=== PATIENT | female | born 1985 | race Caucasian/White ===

== ENCOUNTER 2018-04-19 19:52 | Emergency (ER) | payer OTHER ==
[2018-04-19 19:57] VITALS: BP 127/77
[2018-04-19] MEDS ORDERED: AMOXICILLIN/CLAVULANATE POT 875/125 MG TAB PO ONE (20:27)
--- NOTE | 2018-04-19 20:29 | EDPHY ---
H & P Stated Complaint: cat bite to left middle finger Time Seen by Provider: 04/19/18 20:19 HPI/ROS: Chief Complaint: Cat bite to her left middle finger HPI: The patient presents to the ED after she sustained a cat bite to the pad of her left middle finger at work today. She denies any acute numbness or weakness. Her tetanus shot is up-to-date. She has received the rabies vaccination. She has no additional acute complaints. REVIEW OF SYSTEMS: Neuro: no headache, numbness, weakness Musculoskeletal: as above Skin: As above Source: Patient Exam Limitations: No limitations - Personal History LMP (Females 10-55): 22-28 Days Ago Current Tetanus/Diphtheria Vaccine: Yes Current Tetanus Diphtheria and Acellular Pertussis (TDAP): Yes - Medical/Surgical History Hx Asthma: No Hx Chronic Respiratory Disease: No Hx Diabetes: No Hx Cardiac Disease: No Hx Renal Disease: No Hx Cirrhosis: No Hx Alcoholism: No Hx HIV/AIDS: No Hx Splenectomy or Spleen Trauma: No Other PMH: migraines - Social History Smoking Status: Never smoked Alcohol Use: None Drug Use: None - Physical Exam Exam: General: No acute distress Left hand: Small puncture wound noted to the dorsal aspect of the pad of the left 3rd finger Neuro: Sensation intact to light touch Vascular: Normal capillary refill Constitutional: Initial Vital Signs Temperature (C) 37.1 C 04/19/18 19:54 Heart Rate 75 04/19/18 19:54 Respiratory Rate 16 04/19/18 19:54 Blood Pressure 127/77 H 04/19/18 19:54 O2 Sat (%) 97 04/19/18 19:54 O2 Delivery Mode Room Air Allergies/Adverse Reactions: No Known Allergies Allergy (Unverified 04/19/18 19:56) Home Medications: Medication Instructions Recorded Amitriptyline HCl 04/19/18 Medical Decision Making ED Course/Re-evaluation: Patient is started on prophylactic Augmentin. She is given her 1st dose in the emergency department. She is discharged home with customary aftercare instructions and return precautions. Departure - Departure Disposition: Home, Routine, Self-Care Clinical Impression: Cat bite Condition: Good Instructions: Animal Bite (ED) Additional Instructions: 1. Return to the ED immediately for any increasing pain, redness, swelling. 2. Take antibiotics as directed for next 7 days.
== END 2018-04-19 20:41 | disposition home or self-care (01) ==
DX: S61.253A Open bite of left middle finger without damage to nail, initial encounter (principal); W55.01XA Bitten by cat, initial encounter; Y92.9 Unspecified place or not applicable; Y93.9 Activity, unspecified; Y99.9 Unspecified external cause status